=== PATIENT | male | born 1935 | race Caucasian/White ===

== ENCOUNTER 2017-12-06 05:26 | Day surgery (SDC) | payer OTHER ==
[~2017-12-06] VITALS: Ht 167.6 cm; Wt 80.3 kg
--- NOTE | ~2017-12-06 | O ---
[facility] [place] [address] OPERATIVE REPORT Name: JUAN NIEVES Room #: DEP [facility] M.R.#: [id number] Admission: 12/06/17 Attend Phys: Jesús Bates MD Discharge: 12/06/17 Date of : 35 Report #: [id number] THIS REPORT FOR: //name// CC: Easton Bates DATE OF SERVICE: 12/06/2017 SURGEON: Jesús Bates MD PREOPERATIVE DIAGNOSIS: Bilateral nasal lacrimal duct obstruction. POSTOPERATIVE DIAGNOSIS: Bilateral nasal lacrimal duct obstruction. OPERATION PERFORMED: Bilateral endoscopic dacryoplasty with silicone intubation. ANESTHESIA: General. COMPLICATIONS: None. INDICATIONS FOR SURGERY: This patient has acquired bilateral nasal lacrimal duct stenosis with chronic tearing and discharge, both eyes. The current procedures are undertaken in order to improve the patient's level of lacrimal outflow and visual clarity. Informed consent was obtained to include but not limited to the potential risks for damage to the eye, loss of vision, bleeding, infection, failure to improve the problem and need for further surgery. DESCRIPTION OF OPERATION: The patient was taken to the operating room, where general anesthesia was administered. The medial canthi were anesthetized with 2% Xylocaine with epinephrine mixed with equal parts of 0.75% Marcaine with Wydase. The lateral scales of the nose were then bilaterally injected with the same anesthetic mixture. The nose was packed with Afrin-soaked cottonoids. The patient was then prepped and draped in the usual sterile fashion. A moist compress was placed on the left eye while attention was turned to the right side. The superior and inferior puncta were then atraumatically dilated with a punctum dilator. A size 0 lacrimal probe was then passed through the superior canalicular system and through the stenosed nasal lacrimal duct. The nasal packing was removed and the endoscope was brought into the field. The inferior turbinate was gently infractured with a [place] periosteal elevator to allow [facility] [address] [place] [address] OPERATIVE REPORT Name: JUAN NIEVES Room #: DEP [facility] M..#: [id number] Admission: 12/06/17 Attend Phys: Jesús Bates MD Discharge: 12/06/17 Date of : 35 Report #: [id number] visualization of the inferior meatus in the area of the opening of the valve of Hasner in the nose. The probe was found and confirmed to be in the proper location. It was removed and subsequently replaced with a size 1 and a size 2 Chaudhari probe, which also had their passage confirmed endoscopically to be in the proper location. A 3 by 15 LacriCatheter was lubricated with a small quantity of ophthalmic antibiotic ointment. The LacriCatheter was then passed through the superior canalicular system and the stenosed nasal lacrimal duct. The LacriCatheter was confirmed to be in the proper location endoscopically intranasally in the inferior meatus. The LacriCatheter was inflated to 9 atmospheres for 90 seconds and deflated. The catheter was then inflated to 9 atmospheres for 60 seconds. The catheter was then withdrawn to the proximal black ring. It was then inflated to 9 atmospheres for 90 seconds. The balloon was then deflated and reinflated to 9 atmospheres for 60 seconds. The balloon was the aspirated and withdrawn to the distal black ring. It was then inflated to 9 atmospheres for 90 seconds. The balloon was deflated and reinflated to 9 atmospheres for 60 seconds. The balloon was then deflated and vigorously aspirated as it was withdrawn through the superior canalicular system. A Winter tube was then passed through the superior canalicular system and out the dilated duct. The Winter tube was secured under the inferior turbinate in the inferior meatus with a Winter hook and retrieved endoscopically. The Winter tube was then passed through the inferior canalicular system in a similar fashion and was retrieved endoscopically in the nose atraumatically. The Winter tube was then secured to itself with 3 square throws and then to the lateral wall of the nose with a 5-0 Prolene suture. Attention was then turned to the other side, where the same procedure was performed. Antibiotic steroid drops were then placed in both eyes. A small quantity of ophthalmic antibiotic ointment was placed on the Winter tube. The patient was then transported to the recovery area with no anesthetic or operative complications being noted. <ELECTRONICALLY SIGNED> By: Jesús Bates MD 12/10/17 0620 [id number] Jesús Bates MD /nt
[~2017-12-06 05:26] MED LIST: CELEXA40 MG PO; DITROPAN XL10 M1 PO; ELIQUIS2.5 MG PO; LANTUS SUBQ; LIPITOR80 MG PO; LISINOPRIL40 MG PO; LOPRESSOR100 M1 PO; NEURONTIN 300300 M1 PO; PROTONIX40 M1 PO; REPATHA SY140 MG/1 M; RESTORIL30 MG PO; TERAZOSIN HCL5 MG PO; ZANTAC 150MG T150 MG PO
[2017-12-06 14:34] VITALS: BP 160/98
== END 2017-12-06 16:30 | disposition home or self-care (01) ==
LOC: OR 05:26 → TBA 05:26 → OR 10:29
DX: H04.553 Acquired stenosis of bilateral nasolacrimal duct (principal); Z87.891 Personal history of nicotine dependence; Z95.0 Presence of cardiac pacemaker; E78.5 Hyperlipidemia, unspecified; K21.9 Gastro-esophageal reflux disease without esophagitis; I12.9 Hypertensive chronic kidney disease with stage 1 through stage 4 chronic kidney disease, or unspecified chronic kidney disease; E11.22 Type 2 diabetes mellitus with diabetic chronic kidney disease; N18.9 Chronic kidney disease, unspecified; Z98.890 Other specified postprocedural states; Z86.73 Personal history of transient ischemic attack (TIA), and cerebral infarction without residual deficits; Z90.49 Acquired absence of other specified parts of digestive tract; I48.91 Unspecified atrial fibrillation
CPT/HCPCS: 50010; 50101; 50261; 50386; 50398; 51777; 56528; 62110; 62900; 70005